=== PATIENT | female | born 1995 | race Caucasian/White ===

== ENCOUNTER → 2018-04-28 13:19 | Outpatient (CLI) | payer BC, SELFPAY | PROVIDERS: Visit Provider Physician Assistant | DX: Z53.9 Procedure and treatment not carried out, unspecified reason (principal) ==

== ENCOUNTER → 2018-04-28 13:31 | Outpatient (CLI) | payer BC, SELFPAY | PROVIDERS: Visit Provider Physician Assistant | DX: R19.7 Diarrhea, unspecified (principal) | CPT/HCPCS: 87015; 87045; 87427; 87899 ==